=== PATIENT | female | born 1995 | race Caucasian/White ===

== ENCOUNTER 2018-05-04 17:36 | Emergency (ER) | payer OTHER ==
--- NOTE | 2018-05-04 17:45 | EDPHY ---
H & P Source: Patient Exam Limitations: No limitations Time Seen by Provider: 05/04/18 17:44 HPI/ROS: HPI: This is a 22-year-old female who presents with Chief Complaint: Left leg laceration, suicidal ideation Location: Left leg Quality: Laceration Duration: Last night around 5:00 p.m. Signs and Symptoms: + bleeding, no radiation, no numbness, no weakness, no tingling, no incontinence, no decreased range of motion, no swelling, no pain, no fever, no auditory hallucinations, no visual hallucinations, + suicidal ideation with a plan, no homicidal ideation, no paranoia Timing: Acute, constant Severity: Mild Context: Patient has a history of depression, anxiety, bipolar disorder presents with left leg laceration induced by a knife by herself with an attempt to self-harm. Patient reports that her mood swings became very severe last night and she was depressed and wanted to end her life. She has been taking her Depakote, Latuda, lithium as prescribed. She is followed outpatient by Dr. Jensen and has the therapist that she follows regularly. She does not believe that her medications are working and she fears for her safety. Tetanus is current. Denies any radiation, weakness, decreased range of motion. She has a history of self cutting in the past Modifying Factors: Direct pressure Comment: ROS: A comprehensive 10 system review of systems is otherwise negative aside from elements mentioned in the history of present illness. MEDICAL/SURGICAL/SOCIAL HISTORY: Medical history: Depression, anxiety, bipolar disorder, self cutting Surgical history: Denies Social history: Nonsmoker. CONSTITUTIONAL: Polite and cooperative adult white female awake and alert, no obvious distress HEENT: Atraumatic and normocephalic, PERRL, EOMI. Nares patent; no rhinorrhea; no nasal mucosal edema. Tympanic membranes clear. Oropharynx clear, no exudate and moist pink mucosa. Airway patent. No lymphadenopathy. No meningismus. Cardiovascular: Normal S1/S2, regular rate, regular rhythm, without murmur rub or gallop. PULMONARY/CHEST: Symmetrical and nontender. Clear to auscultation bilaterally. Good air movement. No accessory muscle usage. ABDOMEN: Soft, nondistended, nontender, no rebound, no guarding, no peritoneal signs, no masses or organomegaly. No CVAT. EXTREMITIES: 2/2 pulses, strength 5/5, left anterior legs inferior to the knee shows 2.5 cm horizontal incision that is superficial nature with scant amount of oozing of blood. Left KNEE: no effusion, no medial and lateral joint line tenderness, full extension to 180, flexion to 120. No pain with varus and valgus exam. No pain with anterior drawer or posterior drawer test. Extensor mechanism intact. no deformities, no clubbing, no cyanosis or edema. NEUROLOGICAL: no focal neuro deficits. GCS 15. SKIN: Warm and dry, no erythema. no rash. Good capillary refill. PSYCH: Poor eye contact, flat affect, no flight of ideas, organized thought process, poor insight and judgment, no auditory hallucinations, no visual hallucinations, + suicidal ideation with a plan, no homicidal ideation, no paranoia (Daniela Londono) Constitutional: Initial Vital Signs Temperature (C) 36.8 C 05/04/18 17:40 Heart Rate 101 H 05/04/18 17:40 Respiratory Rate 18 05/04/18 17:40 Blood Pressure 125/76 H 05/04/18 17:40 O2 Sat (%) 96 05/04/18 17:40 O2 Delivery Mode Room Air Allergies/Adverse Reactions: No Known Allergies Allergy (Unverified 05/04/18 18:11) Home Medications: Medication Instructions Recorded Gabapentin 05/04/18 Latuda 05/04/18 [place] Carbonate 600 mg cap (*) 05/04/18 Medical Decision Making Procedures: Procedure: Laceration repair. Verbal consent was obtained from the patient. The 3.5 cm, horizontal, simple laceration on the left lower leg was anesthetized in the usual fashion using 6 mL of 1% lidocaine with epinephrine. The wound was irrigated, draped and explored to its base with a gloved finger. There were no deep structures involved. No tendon injury was identified. The wound was repaired with 1 portal closure stitch of 4-0 Prolene. Good hemostasis was achieved and patient tolerated procedure well. Clean sterile dressing applied. The procedure was performed by myself. (Daniela Londono) ED Course/Re-evaluation: 0700AM: Signed over to Dr. Rivera. (Nitish Whitfield) Patient was signed out to me at 7:[address] Whitfield. I saw the patient at 8:00 a.m.. I discussed the treatment plan with the patient mother. She is awaiting evaluation. They expressed understanding and agreement 11:00 a.m. Patient has been evaluated by mental health. They feel she has good support and is appropriate for outpatient management. I discussed this with patient and her mother and they are amenable to this plan (Daron Rivera) Tetanus is current. Local anesthesia provided and irrigated copiously. Laceration repaired with nonabsorbable sutures. Clean sterile dressing applied. No signs of neurovascular compromise/tenting of skin/compartment syndrome/ extremities and joints examined above and below area of concern and are neurovascularly intact. 1800: Placed on M1 hold due to severe major depression with suicidal ideation and self-harm. Labs and UDS ordered. Currently calm and cooperative. No chemical interventions required at this time. 1830: Patient psychiatrist, Dr. Bon Jnesen, called to discuss patient. He agrees with M1 hold and inpatient psychiatric hospitalization and stabilization. He reports that he will call the patient's parents and update them on our plan. He can be reached at cell phone [phone]. 1940: Labs reviewed and grossly unremarkable. Urine drug screen positive for amphetamine. [place] level low. Medically clear for mental health evaluation. 0100: End of shift. Signed over to Dr. Whitfield pending mental health evaluation in the morning. Psychiatric meds ordered. This patient was seen under the supervision of my secondary supervising physician. I evaluated care for this patient independently. Discussed this patient with Dr. Gordon. (Daniela Londono) Differential Diagnosis: Suicide ideation and self-inflicted injury but good support and after mental health evaluation it is felt that appropriate management as outpatient (Daron Rivera) Differential diagnosis includes but is not limited to major depression, suicidal ideation, self-harm, anxiety, bipolar disorder, laceration, nerve injury, tendon injury, muscular injury. (Daniela Londono) Other Provider: The patient was evaluated and managed by the Physician Casing Inspector. I discussed the patient's presentation and course with the midlevel provider with them and agree with the evaluation. My co-signature indicates that I have reviewed this chart and I agree with the findings and plan of care as documented. I am the secondary supervising physician. (Bhavana Gordon) - Data Points Laboratory Results: Laboratory Results 05/04/18 18:55 05/04/18 18:55 Medications Given: Discontinued Medications Diazepam (Valium) 5 mg PO EDNOW ONE Stop: 05/04/18 23:47 Last Admin: 05/04/18 23:54 Dose: 5 mg [place] Carbonate (Del[place] Carbonate) 600 mg PO EDNOW ONE Stop: 05/04/18 23:44 Last Admin: 05/04/18 23:54 Dose: 600 mg Lurasidone HCl (Latuda) 10 mg PO EDNOW ONE Stop: 05/04/18 23:46 Last Admin: 05/05/18 00:23 Dose: 10 mg Trazodone HCl (Trazodone) 100 mg PO EDNOW ONE Stop: 05/04/18 23:46 Last Admin: 05/05/18 00:23 Dose: 100 mg Departure - Departure Disposition: Home, Routine, Self-Care Clinical Impression: Bipolar disorder with severe depression Laceration of left lower leg without complication Qualifiers: Encounter type: initial encounter Qualified Code(s): S81.812A - Laceration without foreign body, left lower leg, initial encounter Condition: Fair Instructions: Care For Your Stitches (ED), Laceration (ED) Additional Instructions: Keep the dressing dry and in place for 48 hours. After 48 hours, you may remove the dressing; wash the site daily with mild soap and water; then pat dry. Wound Care Follow-Up: Removal of sutures in [7-10] days. Suture removal is complimentary in uncomplicated cases. Infection or abnormal findings would require reevaluation by the MD. In that case, you may be billed. Return for further thoughts of harming herself or others. Follow up with your psychiatrist. Referrals: ANJUM JENSEN [Non Staff Provider ()] - As per Instructions
[2018-05-04 19:09] LABS: PLATELET COUNT 250 10^3/uL (150-400)
[2018-05-04] MEDS ORDERED: LITHIUM CARBONATE 300 MG TAB PO ONE (23:43)
[2018-05-04] MEDS ORDERED: LURASIDONE HCL 20 MG TAB PO ONE (23:45)
[2018-05-04] MEDS ORDERED: traZODone 100 MG TAB PO ONE (23:45)
[2018-05-04] MEDS ORDERED: DIAZEPAM 5 MG TAB PO ONE (23:46)
[2018-05-05 11:12] VITALS: BP 113/77
--- NOTE | 2018-05-05 13:29 | ASMTTLCEVL ---
[facility] Evaluation - Basic Information Evaluation Start Date and 05/05/2018 09:30 AM Time Hospital Status Answers: M1 Hold 72-hr M1 Hold Start Date 05/04/2018 06:00 PM and Time Patient statement Notes: It started Tuesday I was feeling so anxious. I cut my knee out of desperation. I was not trying to kill myself. Narrative Notes: Pt is a 22 year old single, female who presented with a left leg laceration and suicidal ideation. Pt has a hx of depression, anxiety, bipolar disorder presented with laceration induced by a knife by herself with an attempt to harm herself. Pt reports her mood swings became very severe last night and she was depressed and wanted to end her life. She has been taking her Depakote, Lautda, and Lithuim as prescribed. She is followed by Psychiatrist, Dr. Ezra Ring, and has a therapist who she also sees on a regular basis. Pt had indicated not feeling safe and having fears for her safety when she initially presented to the ED. Pt has a hx of cutting in the past. Pt was placed on a M1 hold due to severe depression with SI and self harm. Pts utox was positive for benzodiazepines which is a prescribed medication. Her Lithuim level was .4. Pt stated she just started taking the Lithuim prescribed by her community Psychiatrist about 4 days ago. Pt when seen by [facility] in am on 05/05 denied any thoughts of self harm or suicide and expressed an ability to keep herself safe. Diagnosis History Notes: Dx of bipolar disorder and anxiety. Prior suicide attempts Notes: Pt has no prior hx of past suicide attempts although she has a hx of past self harming behaviors. Prior hospitalizations Notes: Pt was hospitalized on 2 prior occasions at [facility] and at [facility] both related to medication changes. Pt was also seen in an ED at the age of 17 for self harming behaviors. Pt had spent 1 year in residential treatment at a facility called [facility] in [place]. Treatment Responses Notes: Pt has tried numerous medications to treat her mental health problems. She has been in treatment for the past 3-4 years. History of violence Notes: Pt has no hx of violence either as a victim or harm towards others. Therapist: Azul Alvares. Psychiatrist: Dr. Ezra Ring Medications (name, dosage, route, freq uency) Notes: Medications include: LIthuim Carbonate, Latuda, and Gabapentin. Allergies/Reaction Notes: No known allergies. Sleep Notes: Pt has a hx of insomnia. Pt reported no changes in her sleep pattern. Appetite Notes: Pt reported no changes in her appetite. Medical/Surgical history Notes: There was no report of any medical problems or surgical hx. Substance use history (frequency, intensity, his tory, duration) Notes: Pt has no hx of substance abuse and does not report any drinking or substance use. Family composition Notes: Pt has a younger brother. Her parents marriage is intact. Need for family Answers: Yes participation in patient's care Family psychiatric/substance abuse history Notes: Pts brother has been treated for depression. Her maternal uncle has been diagnosed with schizophrenia. Developmental history Notes: Pt denied any developmental delays. There was no report of any dx of ADD or ADHD. Pt also denied any hx of concussions, LOC or Head injuries. Abuse concerns Answers: None Marital status/children Notes: Pt is singe, never and has no children. Living situation Notes: Pt lives alone in an apt. Sexual history/orientation Notes: Pt is not in a relationship. She identifies as a heterosexual. Peer support/family strengths Notes: Pt reports she has some friends she maintains in contact with along with support from her parents and other family members. Education level/history Notes: Pt dropped out of [employer] earlier this year. She has plans to return to another college which she feels would be a better fit for her. 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 Notes: No hx Legal Notes: Pt denied any legal problems. Hoahaoism/Spiritual Notes: Pt did not identify any hinduism or spiritual beliefs that would interfere with her treatment. Leisure Notes: Pt reports she enjoys reading, going on bike rides, hiking and talking with friends and relatives. Collateral Notes: Collateral information was obtained from pt's parents. Parents are supportive of pt's discharge and expressed feeling pt could keep herself safe with her ongoing outpt mental health treatment. [facility] also made contact with her community Psychiatrist, Dr. Ring who had originally agreed pt should be placed on a M1 hold awaiting a complete MH evaluation. Per consult with Dr Ring it was agreed pt would be appropriate for d/c to the community with parents providing added support over the next 48 hours. Patient's strengths Answers: Honest (Please select at least TWO strengths): [facility] [place] Motivated for Treatment Responsible/Dependable Supportive Family Willingness [facility] Evaluation - Mental Status Exam Appearance: Answers: Appropriate Eye Contact: Answers: Good/Direct Mood: Answers: Depressed Sad Affect: Answers: Appropriate Calm Sad Behavior: Answers: Cooperative Speech: Answers: Relevant Logical Clear Thought Process: Answers: Organized Oriented Alert Insight: Answers: Good Judgement: Answers: Fair Manic Signs/Symptoms Answers: Distractibility Impulsivity Mood Swings Depression Answers: Sad Mood Signs/Symptoms: Worthlessness Anxiety Signs/Symptoms Answers: Generalized Anxiety Hallucinations: Answers: None Pt reported to have Answers: Yes suicidal/self-injuring ideation/behavior? Pt reported to be making Answers: No suicidal/self-injuring threats? Pt reported to have Answers: No aggression/assault ideation/behavior? Pt reported to be making Answers: No aggression/assault threats? Pt exhibits inability to Answers: No care for self/grave disability? Ideation/behavior is Answers: No chronic? Patient has a specific Answers: No plan? Ideation involves Answers: No serious/lethal intent? Ideation has Answers: No delusional/hallucinatory content? History of Answers: Yes suicidal/self-injuring ideation, behavior, or threats? History of Answers: No aggressive/assaultive ideation, behavior, or threats? History of serious Answers: No physical harm to self/others while in treatment setting? [facility] Evaluation - Suicide/Homicide Risk Suicide Risk Factors: Answers: Anxiety/Panic, Severe Bipolar Disorder Global Insomnia Rapid Mood Shifts Self-Harm Behaviors None Current Suicidal Answers: No Ideation? Current Suicidal Ideation Answers: No in the Past 48 Hours? Current Suicidal Ideation Answers: No in the Past Month? Current Suicidal Answers: No Ideation, Worst Ever? Suicide Internal Answers: Absence of Psychosis Protective Factors: Suicide External Answers: Positive Therapeutic Protective Factors: Relationships Social Support Ranking of patient's Answers: Low suicidal risk: Ranking of patient's Answers: Low homicidal risk: [facility] Evaluation - Wrap-up AXIS I Diagnosis (include DSM-V and ICD-10 codes), must also be entered in [facility], which is the source of truth. Notes: Generalized Anxiety Disorder 300.02 (F41.1) Bipolar I Disorder, current or most recent episode depressed, moderate 296.52 (F31.32) Evaluation End Date and 05/05/2018 12:30 PM Time (HH:MM): Date Signed: 05/05/2018 01:28 PM Electronically Signed By:Aileen Bingham
--- NOTE | 2018-05-05 13:35 | ASMTTCLDSP ---
[facility] Discharge Disposition Disposition: Answers: Discharge Disposition Notes: Notes: In consultation with [facility] ED physician, Daron Rivera and on-call psychiatrist, Eric Manzanares MD, and community Psychiatrist, Dr Ezra Ring all concurred that pt does not appear to meet 27-65 criteria requiring psychiatric hospitalization as pt does not appear to be at risk of harm to self/others/gravely disabled due to a mental illness condition. Patients parents are supportive and in agreement with discharge to the community and agree to assist pt with follow up through her mental health community providers. Discharge Concerns/Recommendations: Notes: Pt will follow up with her community Psychiatrist, Dr. Ezra Ring and her therapist and supportive team through the [facility]. Pt will be spending the weekend with her parents for additional support to assure her safety. Pt verbalized an ability to keep herself safe and return to the [facility] ED if additional mental health support is needed. Psychiatrist vacating M1 Dr Eric Manzanares Hold: Date and time M1 hold 05/05/2018 10:50 AM vacated (time format is hh:mm): Type of Hold: Answers: M1/72-hour Hold Hold initiated by: Answers: ED Physician Date Signed: 05/05/2018 01:34 PM Electronically Signed By:Aileen Bingham
== END 2018-05-05 11:21 | disposition home or self-care (01) ==
PROC: 0HQLXZZ Repair Left Lower Leg Skin, External Approach (ICD-10-PCS; principal; 2018-05-04)
DX: S81.812A Laceration without foreign body, left lower leg, initial encounter (principal); R45.851 Suicidal ideations; F33.2 Major depressive disorder, recurrent severe without psychotic features; X78.1XXA Intentional self-harm by knife, initial encounter; Y92.9 Unspecified place or not applicable
CPT/HCPCS: 80305; G0480